=== PATIENT | male | born 1990 | race Caucasian/White ===

== ENCOUNTER 2017-02-08 17:14 | Emergency (ER) | payer MEDICAID ==
[~2017-02-08] VITALS: Ht 177.8 cm; Wt 77.0 kg
[2017-02-08 22:20] VITALS: BP 109/66
== END 2017-02-08 22:22 | disposition home or self-care (01) ==
LOC: ER 18:00
DX: S62.511A Displaced fracture of proximal phalanx of right thumb, initial encounter for closed fracture (principal); X58.XXXA Exposure to other specified factors, initial encounter; Y93.67 Activity, basketball; Y92.89 Other specified places as the place of occurrence of the external cause; Y99.8 Other external cause status
CPT/HCPCS: 29125; 73130; 99284; Z7610